=== PATIENT | female | born 2000 | race Caucasian/White ===

== ENCOUNTER 2024-10-11 08:35 | Emergency (ER) | payer OTHER ==
[~2024-10-11] VITALS: Ht 157.5 cm; Wt 65.8 kg
[2024-10-11 09:17] VITALS: TEMP 98
[2024-10-11] MEDS ORDERED: IBUP-1955 PO (10:48)
[2024-10-11 11:03] VITALS: BP 110/76; O2SAT 99
== END 2024-10-11 11:03 | disposition home or self-care (01) ==
LOC: ER 08:46
DX: M79.661 Pain in right lower leg (principal); M79.89 Other specified soft tissue disorders; Z86.79 Personal history of other diseases of the circulatory system
CPT/HCPCS: 93971-TC